=== PATIENT | female | born 1970 | race Hispanic/Latino ===

== ENCOUNTER 2018-10-19 12:59 | Outpatient (CLI) | payer OTHER | END 2018-10-19 13:00 | disposition home or self-care (01) | LOC: DTY/OP 12:59 | PROVIDERS: ATTEND Surgery | DX: E66.01 Morbid (severe) obesity due to excess calories (principal) | CPT/HCPCS: 97802 ==

== ENCOUNTER 2018-10-25 11:00 | Inpatient (IN) | payer BC, OTHER ==
[2018-11-07] MEDS ORDERED: Heparin 5,000 UNITS/ML VIAL ONE (07:39)
--- NOTE | 2018-11-07 07:39 | HP ---
CHIEF COMPLAINT: Lap band intolerance, obesity. HISTORY: A 48-year-old female, underwent laparoscopic adjustable gastric banding in [facility] in 2006. She had a slip and lost from 230 to 110 pounds. She had a revision of the lap band by Dr. Baumann in [place]. She is having trouble eating. She is here for removal of band and conversion to sleeve. PAST MEDICAL HISTORY: Hypertension. PAST SURGICAL HISTORY: Breast reduction, lap band revision x2. MEDICATIONS: Lotrel. ALLERGIES: NO KNOWN DRUG ALLERGIES. FAMILY HISTORY: Heart disease. SOCIAL HISTORY: She is . Former smoker. Occasional alcohol. PHYSICAL EXAMINATION: VITAL SIGNS: Height 64, weight 160, and body mass index 30. GENERAL: Well-developed, well-nourished female, in no apparent distress. HEENT: Unremarkable. LUNGS: Clear. HEART: Regular rate and rhythm. ABDOMEN: Soft, nondistended, and nontender. Multiple well-healed surgical scars. EXTREMITIES: Good pulses. No pedal edema. ASSESSMENT: Lap band intolerance. PLAN: Laparoscopic removal of band, port, and conversion to sleeve. Job ID: [id number]
[2018-11-07] MEDS ORDERED: Midazolam HCl 2 mg/2 ml Vial ONE (08:37)
[2018-11-07] MEDS ORDERED: Bupivacaine/Epinephrine 0.25% 30 ML VIAL ONE ×2 (08:44→09:04)
[2018-11-07] MEDS ORDERED: Fentanyl 250 MCG/5 ML VIAL ONE (08:44)
[2018-11-07] MEDS ORDERED: CEFAZOLIN 1 GM VIAL ONE (09:12)
[2018-11-07] MEDS ORDERED: Promethazine HCl 25 MG/ML VIAL SLOW IVP PRN (10:08)
[2018-11-07] MEDS ORDERED: Promethazine HCl 25 MG/ML VIAL IM PRN ×3 (10:08→11:02)
[2018-11-07] MEDS ORDERED: Ondansetron HCl/PF 4 MG/2 ML Vial IVP PRN (10:08)
[2018-11-07] MEDS ORDERED: hydrALAZINE 20 MG/ML VIAL SLOW IVP PRN (10:53)
[2018-11-07] MEDS ORDERED: Dextrose 50% Abboject 50 ML SYRINGE SLOW IVP PRN (10:53)
[2018-11-07] MEDS ORDERED: Hydrocodone-Acetamin 15 ML UDCUP PO PRN (10:53)
[2018-11-07] MEDS ORDERED: Dextrose 5% in Water 1,000 ML IV PRN (10:53)
[2018-11-07] MEDS ORDERED: Ondansetron PF 4 MG/2 ML Vial IVP PRN ×2 (10:53→11:02)
[2018-11-07] MEDS ORDERED: diphenhydrAMINE 50 MG/ML VIAL IVP PRN ×2 (10:53→11:02)
[2018-11-07] MEDS ORDERED: diphenhydrAMINE 50 MG/ML VIAL IM PRN (11:02)
[2018-11-07] MEDS ORDERED: Zolpidem Tartrate 5 MG TAB PO PRN (11:02)
[2018-11-07] MEDS ORDERED: diphenhydrAMINE 25 MG CAP PO PRN (11:02)
[2018-11-07] MEDS ORDERED: Naloxone HCl 0.4 mg/ml Vial IV PRN (11:02)
[2018-11-07] MEDS ORDERED: HYDROmorphone 10 mg/100 ml CADD IVPB PRN (11:02)
[2018-11-07] MEDS ORDERED: Communication Order-Pharmacy FS SCH (11:15)
[2018-11-07] MEDS ORDERED: HYDROmorphone 2 MG/ML VIAL ONE (11:24)
[2018-11-07] MEDS ORDERED: Glycopyrrolate 0.2 MG/ML 5 ML SYRINGE ONE (11:59)
[2018-11-07] MEDS ORDERED: PROPOFOL 200 MG/20 ML VIAL ONE (11:59)
[2018-11-07] MEDS ORDERED: Rocuronium Bromide 10 MG/ML (10ML VIAL) ONE (11:59)
[2018-11-07] MEDS ORDERED: Ondansetron PF 4 MG/2 ML Vial ONE (11:59)
[2018-11-07] MEDS ORDERED: Dexamethasone 20 MG/5 ML VIAL ONE (11:59)
[2018-11-07] MEDS ORDERED: Sodium Chloride 0.9% (PF) 10 ML VIAL FS PRN (12:25)
--- NOTE | 2018-11-07 12:28 | OP ---
DATE OF PROCEDURE: 11/07/2018 PREOPERATIVE DIAGNOSES: Lap band intolerance, recurrent hiatal hernia, obesity. PROCEDURES PERFORMED: Laparoscopic removal of lap band and port, hiatal hernia repair, sleeve gastrectomy, and esophagogastroscopy. INDICATIONS: A 48-year-old female, who has had a lap band placed, then had to have it revised twice with inability to tolerate any restriction without severe reflux. FINDINGS: There was a recurrent hiatal hernia. A 38-Upper Sorbian bougie was used. She had dense adhesions in the area. DESCRIPTION OF PROCEDURE: After informed consent was obtained, the patient was taken to the operating room and given general endotracheal anesthesia and placed in the supine position. Abdomen was prepped and draped in the usual fashion. Local anesthesia was infiltrated subcutaneously and deep. A 12-mm incision was performed approximately 8 inches above the xiphoid slightly to the left. Veress needle was inserted. Drop test was performed. Pneumoperitoneum was created to a volume of 2 L of carbon dioxide. Utilizing a bladeless 12 mm trocar and 0-degree laparoscope, direct visual entry into the abdominal cavity was performed. Pneumoperitoneum was then created to a pressure of 15 mmHg and the patient was placed in steep reverse Trendelenburg position. Malathi liver retractor was inserted. Left lobe of liver retracted superiorly. A 12 mm port was placed on the right and two 12s were placed left subcostal, one of which was where the lap band port was. The lap band tubing was divided sharply. The tubing traced down to the buckle. The buckle was dissected out, unlocked. The capsule was incised circumferentially and the lap band removed. Then, further lysis of adhesions was performed to allow the left lobe of the liver to be from the scar. This then allowed further retraction with the Malathi retractor. The right crura was dissected. Then, the omentum was divided to enter the lesser sac and further divided with the LigaSure. Short gastrics divided with LigaSure and the left crura defined with the LigaSure. I was able to get a complete reduction of the hiatal hernia. However, there was extreme density of adhesions posterior on the esophagus. I was very uncomfortable taken these down due to the proximity to the esophagus and decided to do an anterior plication. A 38-Upper Sorbian bougie was inserted, directed into the antrum and the hiatal hernia was closed with 0 Ethibond in the Sew-Right and Ti-Knot device anteriorly. Then, the sleeve was performed. Using a 60 mm green load stapler, the antrum was divided to the bougie, a golds were used along the bougie due to thickness of the stomach and then 2 blues at the end. Hemostasis was assured. Intraoperative endoscopy was then performed. The video endoscope was inserted under direct vision and advanced into the sleeve. The staple line was inspected. There was no bleeding. Staple line was then tested by inflating the new stomach with pressurized air under water. There was no air leak. Stomach was decompressed. Scope was removed. At this point, the lap band port was dissected out and removed. Then, the remnant of the stomach was removed through the same port site. The fascia was closed with 0 Vicryl suture and the GraNee needle. The ports sites were all irrigated. Irrigation fluid removed. Trocars and retractors were removed. The skin was closed with interrupted 4-0 Rapide. Dermabond was applied. The patient tolerated the procedure well, transferred to Recovery in good condition. Sponge and needle count verified correct x2. Job ID: [id number]
[2018-11-07 13:03] VITALS: BMI 27.8
[2018-11-07] MEDS: Ketorolac Tromethamine 30 MG/ML VIAL IVP SCH ×2 (13:24→18:26)
[2018-11-07] MEDS: D5 1/2 NS w/20 mEq KCL 1,000 ML IV SCH ×2 (13:26→22:01)
[2018-11-07] MEDS: CEFAZOLIN 2 GM in Premix Bag 1 BAG IVPB SCH (17:11)
[2018-11-08] MEDS: Ketorolac Tromethamine 30 MG/ML VIAL IVP SCH ×3 (00:28→11:55)
[2018-11-08] MEDS: CEFAZOLIN 2 GM in Premix Bag 1 BAG IVPB SCH (00:28)
[2018-11-08] MEDS: D5 1/2 NS w/20 mEq KCL 1,000 ML IV SCH ×2 (04:15→09:59)
[2018-11-08 04:53] LABS: #Lymphocytes 1.1 thou/uL (1.20-3.40); #Neutrophils 13.2 thou/uL (1.40-6.50); %Basophils 0.2 % (0.0-1.0); %Monocytes 6.4 % (0.0-10.0); %Neutrophils 86.4 % (42.0-75.0); Hemoglobin 12.2 g/dL (12.0-16.0); Mean Corpuscular HGB CONC 32.9 g/dL (32.0-36.0); Mean Corpuscular Hemoglobin 29.2 pg (27.0-31.0); Mean Corpuscular Volume 88.8 fL (78.0-98.0); Mean Platelet Volume 8.3 fL (7.4-10.4); Platelet Count 273 thou/uL (130-400); RBC Distribution Width 14.8 % (11.5-14.5); Red Blood Cell (RBC) Count 4.18 mill/uL (4.20-5.40); White Blood Cell (WBC) Count 15.3 thou/uL (4.8-10.8)
[2018-11-08 05:11] LABS: Anion Gap 9 mmol/L (10-20); BUN (Urea Nitrogen) 5 mg/dL (7.0-18.7); Calc. Creatinine Clearance 135 mL/min (70-130); Calcium 8.8 mg/dL (7.8-10.44); Carbon Dioxide 25 mmol/L (22-29); Chloride 104 mmol/L (98-107); Estimated GFR-MDRD Greater than 90; Glucose 114 mg/dL (70-105); Potassium 3.9 mmol/L (3.5-5.1); Sodium 134 mmol/L (136-145)
[2018-11-08] MEDS ORDERED: Enoxaparin Sodium 40 MG/0.4 ML SYRINGE SC SCH (09:00)
[2018-11-08] MEDS ORDERED: Pantoprazole 40 MG VIAL IVP SCH (09:00)
--- NOTE | 2018-11-08 10:13 | RAD ---
GASTROGRAFIN UPPER GI SERIES: HISTORY: Patient with gastric sleeve. RADIATION DOSIMETRY: 1.6 minutes of fluoroscopy and DAP of 18.9 sainz per centimeter squared. TECHNIQUE: Gastrografin was given orally. Spot and overhead images obtained. FINDINGS: The esophagus is patulous with poor peristalsis. The gastroesophageal junction is in normal position . There are numerous tertiary contractions and suboptimal stripping of the distal esophagus. The proximal gastric lumen fills with contrast. Even after one hour, contrast does not pass into the gastric antrum and distal lumen, suggesting edema at the surgical site in the mid stomach. No evidence of extravasation of contrast seen. IMPRESSION: Contrast is not visualized passing the gastric sleeve region. Transcribed Date/Time: 11/08/2018 11:29 AM
[2018-11-08 15:50] VITALS: BP 118/86; TEMP 98.7
--- NOTE | 2018-11-09 10:49 | DIS ---
DATE OF ADMISSION: 11/07/2018 DATE OF DISCHARGE: 11/08/2018 DISCHARGE DIAGNOSES: Hiatal hernia, lap band intolerance, obesity. PROCEDURES DURING ADMISSION: Laparoscopic removal of lap band and port, hiatal hernia repair, sleeve gastrectomy. HOSPITAL COURSE: The patient was admitted, taken to the operating room, where she underwent removal of band, repair of the hiatal hernia, and sleeve gastrectomy. Postoperatively, she had some additional swelling after Gastrografin swallow that resolved. She is now tolerating liquids well. Pain is controlled on p.o. meds. She is discharged home on hydrocodone and Zofran. She will follow up with me in 2 weeks. Job ID: [id number]
== END 2018-11-08 17:15 | disposition home or self-care (01) | DRG 908 ==
LOC: SURG A 11-07 06:43
PROVIDERS: ADMIT Surgery; ATTEND Surgery
PROC: 0DP64CZ Removal of Extraluminal Device from Stomach, Percutaneous Endoscopic Approach (ICD-10-PCS; principal; 2018-11-07)
PROC: 0BQT4ZZ Repair Diaphragm, Percutaneous Endoscopic Approach (ICD-10-PCS; 2018-11-07)
PROC: 0DB64Z3 Excision of Stomach, Percutaneous Endoscopic Approach, Vertical (ICD-10-PCS; 2018-11-07)
PROC: 0DJ68ZZ Inspection of Stomach, Via Natural or Artificial Opening Endoscopic (ICD-10-PCS; 2018-11-07)
DX: T85.858A Stenosis due to other internal prosthetic devices, implants and grafts, initial encounter (principal); K95.09 Other complications of gastric band procedure; E66.01 Morbid (severe) obesity due to excess calories; Y83.8 Other surgical procedures as the cause of abnormal reaction of the patient, or of later complication, without mention of misadventure at the time of the procedure; Y92.009 Unspecified place in unspecified non-institutional (private) residence as the place of occurrence of the external cause; Z68.27 Body mass index [BMI] 27.0-27.9, adult; I10 Essential (primary) hypertension; Z87.891 Personal history of nicotine dependence; K44.9 Diaphragmatic hernia without obstruction or gangrene
CPT/HCPCS: 36415; 74241; 80048; 85025; 88307; 88312; 94760; C9113; J0690; J1100; J1170; J1644; J1650; J1885; J2250; J2405; J2704; J3010

== ENCOUNTER 2018-11-02 10:02 | Outpatient (CLI) | payer BC ==
--- NOTE | 2018-11-02 10:39 | RAD ---
2 views of the chest: 11/02/2018 COMPARISON: None HISTORY: Preoperative patient FINDINGS: The lungs appear clear. Heart and mediastinal contours are grossly unremarkable. There is a lap band present. IMPRESSION: No acute findings.
[2018-11-02 10:52] LABS: #Eosinphils 0.1 thou/uL (0.0-0.7); #Monocytes 0.7 thou/uL (0.11-0.59); #Neutrophils 4.1 thou/uL (1.40-6.50); %Basophils 0.3 % (0.0-1.0); %Eosinophils 1.9 % (0.0-10.0); %Lymphocytes 28.4 % (21.0-51.0); %Monocytes 9.4 % (0.0-10.0); Hemoglobin 13.8 g/dL (12.0-16.0); Mean Corpuscular HGB CONC 33.3 g/dL (32.0-36.0); Mean Corpuscular Volume 86.9 fL (78.0-98.0); Mean Platelet Volume 7.6 fL (7.4-10.4); Platelet Count 316 thou/uL (130-400); RBC Distribution Width 14.7 % (11.5-14.5); Red Blood Cell (RBC) Count 4.77 mill/uL (4.20-5.40); White Blood Cell (WBC) Count 6.9 thou/uL (4.8-10.8)
[2018-11-02 10:58] LABS: BHCG - Serum Negative (NEGATIVE); Pregs Control Background? CLEAR/WHITE (CLR/WHITE); Pregs Control Bar Appear? YES (CONTROL BAR)
[2018-11-02 11:06] LABS: Hemoglobin A1c 5.2 % (4.0-6.0)
[2018-11-02 11:16] LABS: ALT (SGPT) 20 U/L (8-55); AST (SGOT) 25 U/L (5-34); Albumin 4.2 g/dL (3.5-5.0); Alkaline Phosphatase 82 U/L (40-150); Anion Gap 15 mmol/L (10-20); BUN (Urea Nitrogen) 7 mg/dL (7.0-18.7); Bilirubin, Direct 0.3 mg/dL (0.1-0.3); Bilirubin, Total 0.7 mg/dL (0.2-1.2); Calc. Creatinine Clearance 0 mL/min (70-130); Calcium 9.3 mg/dL (7.8-10.44); Carbon Dioxide 24 mmol/L (22-29); Chloride 102 mmol/L (98-107); Estimated GFR-MDRD Greater than 90; Globulin 3.1 g/dL (2.4-3.5); Glucose 97 mg/dL (70-105); Potassium 3.9 mmol/L (3.5-5.1); Protein, Total 7.3 g/dL (6.0-8.3); Sodium 137 mmol/L (136-145)
--- NOTE | 2018-11-04 21:15 | EKG ---
Test Reason : Blood Pressure : / mmHG Vent. Rate : 076 BPM Atrial Rate : 076 BPM P-R Int : 202 ms QRS Dur : 074 ms QT Int : 372 ms P-R-T Axes : 052 005 037 degrees QTc Int : 418 ms Normal sinus rhythm with sinus arrhythmia Anterior infarct , age undetermined Abnormal ECG No previous ECGs available Confirmed by Miguel HAMMOND ([id number]) on 11/04/2018 9:15:16 PM Referred By: LAVELL Confirmed By:Miguel HAMMOND
== END 2018-11-02 10:03 | disposition home or self-care (01) ==
LOC: LABBT 10:02
PROVIDERS: ATTEND Surgery
DX: Z01.818 Encounter for other preprocedural examination (principal); E66.01 Morbid (severe) obesity due to excess calories; T85.858A Stenosis due to other internal prosthetic devices, implants and grafts, initial encounter
CPT/HCPCS: 71046; 80053; 80076; 83036; 84703; 85025; 93005; 93010

== ENCOUNTER 2018-11-10 15:24 | Observation (INO) | payer BC ==
[~2018-11-10 15:24] MED LIST: Iopamidol 300 61% 100 ML VIAL FS ONE
[2018-11-10] MEDS ORDERED: Thiamine HCl 200 MG/2 ML VIAL ONE (16:09)
[2018-11-10] MEDS ORDERED: Multivit, Adult Inj 10 ML VIAL ONE (16:09)
[2018-11-10 16:24] LABS: #Basophils 0.1 thou/uL (0.0-0.2); #Eosinphils 0.2 thou/uL (0.0-0.7); #Lymphocytes 1.8 thou/uL (1.20-3.40); #Monocytes 0.9 thou/uL (0.11-0.59); #Neutrophils 7.5 thou/uL (1.40-6.50); %Basophils 0.9 % (0.0-1.0); %Eosinophils 1.5 % (0.0-10.0); %Lymphocytes 16.9 % (21.0-51.0); %Monocytes 8.2 % (0.0-10.0); %Neutrophils 72.5 % (42.0-75.0); Hemoglobin 14.5 g/dL (12.0-16.0); Mean Corpuscular HGB CONC 32.7 g/dL (32.0-36.0); Mean Corpuscular Hemoglobin 28.6 pg (27.0-31.0); Mean Corpuscular Volume 87.5 fL (78.0-98.0); Mean Platelet Volume 9.2 fL (7.4-10.4); Platelet Count 316 thou/uL (130-400); RBC Distribution Width 15.2 % (11.5-14.5); Red Blood Cell (RBC) Count 5.09 mill/uL (4.20-5.40); White Blood Cell (WBC) Count 10.4 thou/uL (4.8-10.8)
[2018-11-10 16:39] LABS: ALT (SGPT) 24 U/L (8-55); AST (SGOT) 17 U/L (5-34); Alkaline Phosphatase 68 U/L (40-150); Anion Gap 20 mmol/L (10-20); BUN (Urea Nitrogen) 24 mg/dL (7.0-18.7); Bilirubin, Total 0.9 mg/dL (0.2-1.2); Calc. Creatinine Clearance 0 mL/min (70-130); Calcium 9.3 mg/dL (7.8-10.44); Carbon Dioxide 15 mmol/L (22-29); Chloride 109 mmol/L (98-107); Estimated GFR-MDRD 89; Globulin 3.9 g/dL (2.4-3.5); Glucose 72 mg/dL (70-105); Lipase 13 U/L (8-78); Magnesium 1.8 mg/dL (1.6-2.6); Potassium 3.6 mmol/L (3.5-5.1); Protein, Total 7.9 g/dL (6.0-8.3); Sodium 140 mmol/L (136-145)
--- NOTE | 2018-11-10 17:10 | RAD ---
Radiograph abdomen one view: DATE: 11/10/2018 Time: 4:35 PM HISTORY: 48-year-old female with vomiting. Status post bariatric surgery. The purpose of the KUB is for planni ng purposes for CT of abdomen ordered by ER. Patient just had a single column upper GI study on 11/08/2018. FINDINGS: The oral contrast material given 2 days ago is now entirely in the right colon, from cecum to proxima l transverse colon. There is no residual oral contrast material in the esophagus, vertical sleeve lumen, or small intestine. Bowel gas pattern is normal. IMPRESSION: 1. The previously administered oral contrast material 2 days ago, has now progressed to the colon. 2. For the current CT, 15 mL dilute Gastrografin will be administered.
--- NOTE | 2018-11-10 17:51 | CT ---
CT ABDOMEN WITH CONTRAST CT PELVIS WITH CONTRAST: DATE: 11/10/2018 HISTORY: 48-year-old female with vomiting. COMPARISON: No prior chest CTs. TECHNIQUE: IV injection of iodinated contrast media: administered. Oral contrast media:, 15 mL solution of very diluted Gastrografin. FINDINGS: Narrowed gastric channel with suture line. The distal esophagus and gastric pouch is dilated with air -fluid level. On the repeat scan, there is very dilute oral contrast material, 2 dilute to distinguish from water. There is much denser nondilated Gastrografin in the right colon from upper GI series 2 days ago. Ther e is no oral contrast material in nondilated small bowel loops. Abutting the medial aspect of the upper spleen and posterior edge of the tail of the pancreas, very c lose to the medial aspect of the left hemidiaphragm, there is a thin-walled 2.5 x 3.5 x 3.5 cm fluid collection without surrounding fat stranding. There is a tiny left pleural effusion. No consolidation at lung bases. No pneumoperitoneum. There is an ill-defined soft tissue density lesion with subcutaneous emphysema in the fat superficial to the anterolateral aspect of the mid abdominal wall. This is presumably site of port of recent laparoscopi c surgery. No pathology identified involving kidneys, liver, abdominal aorta, adrenals, pancreas, or spleen. No colonic diverticulitis. Small amount of free fluid in the cul-de-sac. Normal urinary bladder. Appendix is fluid-filled and is 7 mm in caliber, but there is no surrounding fat stranding. Unlikely to represent acute appendicitis unless the patient has right lower quadrant or periumbilical pain. IMPRESSION: 1) status post vertical sleeve gastrectomy. 2) persistent partial obstruction at proximal-midportion of the gastric sleeve. The oral contrast mat erial given 2 days ago has reached the right hemicolon.
[2018-11-10] MEDS ORDERED: Morphine 4 MG/ML VIAL ONE ×2 (18:24→18:51)
[2018-11-10 18:38] LABS: Bilirubin Negative (Negative); Blood, Urine Negative (Negative); Clarity Slightly Cloudy (Clear); Glucose, Urine (Dipstick) Negative (Negative); Leukocyte Negative (Negative); Nitrite Negative (Negative); Protein, Urine (Dipstick) Negative (Neg-Trace); Specific Gravity, Urine 1.015 (1.005-1.030); Urobilinogen 0.2 mg/dL (0.2-1.0); pH, Urine 5.5 (5.0-9.0)
[2018-11-10] MEDS ORDERED: Dextrose 5%-Lactated Ringers 1,000 ML IV SCH (20:00)
[2018-11-10] MEDS ORDERED: diphenhydrAMINE 50 MG/ML VIAL IVP PRN (21:04)
[2018-11-10] MEDS ORDERED: Acetaminophen 1,000 MG in Premix Bag 1 BAG IVPB PRN (21:04)
[2018-11-10] MEDS ORDERED: Dextrose 5% in Water 1,000 ML IV PRN (21:04)
[2018-11-10] MEDS ORDERED: Hydrocodone-Acetamin 15 ML UDCUP PO PRN (21:04)
[2018-11-10] MEDS ORDERED: Ondansetron PF 4 MG/2 ML Vial IVP PRN (21:04)
[2018-11-10] MEDS ORDERED: Dextrose 50% Abboject 50 ML SYRINGE SLOW IVP PRN (21:04)
[2018-11-10] MEDS ORDERED: Ketorolac Tromethamine 30 MG/ML VIAL IVP PRN (21:04)
[2018-11-10] MEDS ORDERED: hydrALAZINE 20 MG/ML VIAL SLOW IVP PRN (21:04)
[2018-11-10] MEDS ORDERED: Promethazine HCl 25 MG/ML VIAL IM PRN (21:04)
[2018-11-10] MEDS: Dextrose 5%-Lactated Ringers 1,000 ML IV SCH (21:56)
[2018-11-11 02:32] VITALS: BMI 26.4
[2018-11-11 05:24] LABS: #Eosinphils 0.3 thou/uL (0.0-0.7); #Lymphocytes 1.8 thou/uL (1.20-3.40); #Monocytes 0.8 thou/uL (0.11-0.59); #Neutrophils 4.8 thou/uL (1.40-6.50); %Basophils 0.3 % (0.0-1.0); %Eosinophils 4.4 % (0.0-10.0); %Lymphocytes 22.9 % (21.0-51.0); %Monocytes 10.6 % (0.0-10.0); %Neutrophils 61.8 % (42.0-75.0); Hemoglobin 12.2 g/dL (12.0-16.0); Mean Corpuscular HGB CONC 32.6 g/dL (32.0-36.0); Mean Corpuscular Hemoglobin 29.2 pg (27.0-31.0); Mean Corpuscular Volume 89.6 fL (78.0-98.0); Mean Platelet Volume 8.6 fL (7.4-10.4); Platelet Count 276 thou/uL (130-400); RBC Distribution Width 14.9 % (11.5-14.5); Red Blood Cell (RBC) Count 4.16 mill/uL (4.20-5.40); White Blood Cell (WBC) Count 7.8 thou/uL (4.8-10.8)
[2018-11-11 05:44] LABS: Anion Gap 11 mmol/L (10-20); BUN (Urea Nitrogen) 15 mg/dL (7.0-18.7); Calc. Creatinine Clearance 128 mL/min (70-130); Calcium 8.6 mg/dL (7.8-10.44); Carbon Dioxide 21 mmol/L (22-29); Chloride 112 mmol/L (98-107); Estimated GFR-MDRD Greater than 90; Glucose 90 mg/dL (70-105); Potassium 4.3 mmol/L (3.5-5.1); Sodium 140 mmol/L (136-145)
[2018-11-11] MEDS: Dextrose 5%-Lactated Ringers 1,000 ML IV SCH (07:17)
[2018-11-11 07:57] VITALS: BP 121/77
[2018-11-11] MEDS ORDERED: Pantoprazole 40 MG VIAL IVP SCH (09:00)
[2018-11-11 11:42] VITALS: TEMP 97.5
--- NOTE | 2018-11-11 15:08 | RAD ---
XR UGI Single Contrast No Air HISTORY: Postop gastric bypass COMPARISON: 11/08/2018 study. FINDINGS: The patient was given 15 mL of Gastrografin which she ingested without difficulty. The dist al esophagus is again noted to be patulous with poor motility. After a several minute delay contrast is seen to pass into the stomach into the antrum region and some minimal contrast seen withi n the duodenal C-loop. No extravasation. IMPRESSION: Delayed passage of contrast but definite improvement as compared to the previous exam.
[2018-11-11] MEDS ORDERED: Enoxaparin Sodium 40 MG/0.4 ML SYRINGE SC SCH (21:00)
--- NOTE | 2018-11-14 12:37 | SS ---
DATE OF ADMISSION: 11/10/2018 DATE OF DISCHARGE: 11/11/2018 ADMISSION DIAGNOSIS: Postoperative nausea and inability to take any oral intake following sleeve gastrectomy. DISCHARGE DIAGNOSIS: Postoperative nausea and inability to take any oral intake following sleeve gastrectomy, resolving. ADMISSION HISTORY: The patient is a 48-year-old female. She had undergone a laparoscopic band removal and sleeve gastrectomy per Dr. Brown on 11/07/2018. It was noted that the patient's upper GI study on the day after her surgery showed no passage of contrast. She was discharged home at that time as it was felt that she could perhaps maintain some degree of hydration. On postoperative day #3, she called complaining of severe nausea and vomiting, inability to keep down any fluids and was referred to the [facility] Emergency Room. She received a couple of liters of IV fluid and felt better. Due to her tachycardia and her symptoms, a CT scan was ordered by the emergency room physician. This showed no contrast within the stomach as she was unable to tolerate even a small amount of contrast when the CT scan was obtained. It was concerning that she would deteriorate at home again and I therefore recommended observation overnight with hydration. She was put in the hospital for observation on 11/10/2018. Other than her inability to swallow any liquids, her exam was entirely benign. She had minimal discomfort. Her CBC was normal at admission and her basic metabolic panel aside from some mild acidosis was unremarkable. By the next day, her acidosis had dramatically improved. She felt that she was doing better and able to sip liquids slowly. An upper GI study was therefore ordered. Although there was slow passage of contrast from the upper stomach to the lower stomach, there was a visualized outflow from the upper gastric area. As she was able to tolerate liquids and was not vomiting later in that day, I felt she would be safe for discharge home. She denied any pain and required no pain medication. I spoke with her extensively regarding methods to optimize her hydration. She was discharged home on 11/11 and instructed to follow up with Dr. Brown as previously scheduled. Job ID: [id number]
== END 2018-11-11 15:40 | disposition home or self-care (01) ==
LOC: SCSER 15:24 → INTOOBSV 18:05 → SURG A 18:05 → SCSER 19:14
PROVIDERS: ADMIT Specialist; ATTEND Specialist
DX: K95.89 Other complications of other bariatric procedure (principal); K91.0 Vomiting following gastrointestinal surgery; F41.9 Anxiety disorder, unspecified; Z79.899 Other long term (current) drug therapy
CPT/HCPCS: 36415; 74018; 74177; 74241; 80048; 80053; 81003; 83605; 83690; 83735; 85025; 94760; 96361; 96365; 96366; 96375; C9113; G0378; J2270; J3411; Q9967

== ENCOUNTER 2019-01-16 15:27 | Inpatient (IN) | payer BC ==
[2019-01-16 15:57] LABS: #Basophils 0.1 thou/uL (0.0-0.2); #Lymphocytes 3.5 thou/uL (1.20-3.40); #Monocytes 0.8 thou/uL (0.11-0.59); #Neutrophils 3.4 thou/uL (1.40-6.50); %Eosinophils 0.5 % (0.0-10.0); %Monocytes 10.7 % (0.0-10.0); %Neutrophils 43.8 % (42.0-75.0); Mean Corpuscular HGB CONC 33.5 g/dL (32.0-36.0); Mean Corpuscular Hemoglobin 29.5 pg (27.0-31.0); Mean Platelet Volume 8.4 fL (7.4-10.4); Platelet Count 255 thou/uL (130-400); RBC Distribution Width 12.7 % (11.5-14.5); Red Blood Cell (RBC) Count 4.73 mill/uL (4.20-5.40); White Blood Cell (WBC) Count 7.8 thou/uL (4.8-10.8)
[2019-01-16] MEDS ORDERED: Morphine 4 MG/ML VIAL ONE (16:01)
[2019-01-16] MEDS ORDERED: Ondansetron PF 4 MG/2 ML Vial ONE (16:01)
[2019-01-16 16:16] LABS: BHCG - Serum Negative (NEGATIVE); Pregs Control Background? CLEAR/WHITE (CLR/WHITE); Pregs Control Bar Appear? YES (CONTROL BAR)
[2019-01-16 16:19] LABS: ALT (SGPT) 18 U/L (8-55); AST (SGOT) 44 U/L (5-34); Albumin 3.8 g/dL (3.5-5.0); Alkaline Phosphatase 107 U/L (40-150); Anion Gap 15 mmol/L (10-20); BUN (Urea Nitrogen) 14 mg/dL (7.0-18.7); Bilirubin, Total 1.3 mg/dL (0.2-1.2); Calc. Creatinine Clearance 0 mL/min (70-130); Calcium 9.1 mg/dL (7.8-10.44); Carbon Dioxide 22 mmol/L (22-29); Chloride 99 mmol/L (98-107); Estimated GFR-MDRD Greater than 90; Globulin 3.1 g/dL (2.4-3.5); Glucose 178 mg/dL (70-105); Lipase 43 U/L (8-78); Protein, Total 6.9 g/dL (6.0-8.3); Sodium 133 mmol/L (136-145)
[2019-01-16 16:50] LABS: Bilirubin Negative (Negative); Blood, Urine Negative (Negative); Clarity Clear (Clear); Glucose, Urine (Dipstick) Normal (Negative); Leukocyte Negative Leu/uL (Negative); Nitrite Negative (Negative); Protein, Urine (Dipstick) 20 mg/dL (Neg-Trace); Urobilinogen 6 mg/dL (Less than 2)
--- NOTE | 2019-01-16 16:51 | ULT ---
Gallbladder ultrasound: Multiple grayscale images of right upper quadrant obtained according to protocol. INDICATION: Pain FINDINGS: Liver: Normal Gallbladder: There is mild gallbladder wall prominence, 4 mm No shadowing cholelithiasis. Waterman's Sign: Negative Common bile duct is mildly dilated, 7 mm. Ascites: None IMPRESSION: Moderate distention of the gallbladder with mild gallbladder wall thickening. Correlate clinically. Mild biliary ductal dilatation. Correlate with biliary laboratory values.
[2019-01-16] MEDS ORDERED: Dextrose 5 % And 0.9 % NaCl 1,000 ML IV SCH (19:15)
[2019-01-16] MEDS ORDERED: Mag-Al 1200 mg/1200 mg/30 ML UDCUP PO PRN (19:24)
[2019-01-16] MEDS ORDERED: Dextrose 50% Abboject 50 ML SYRINGE SLOW IVP PRN (19:24)
[2019-01-16] MEDS ORDERED: hydrALAZINE 20 MG/ML VIAL SLOW IVP PRN (19:24)
[2019-01-16] MEDS ORDERED: Morphine 2 MG/ML SYRINGE SLOW IVP PRN (19:24)
[2019-01-16] MEDS ORDERED: Promethazine HCl 25 MG/ML VIAL IM PRN (19:24)
[2019-01-16] MEDS ORDERED: Calcium Carbonate 500 MG ChewTAB PO PRN (19:24)
[2019-01-16] MEDS ORDERED: Morphine 4 MG/ML VIAL SLOW IVP PRN (19:24)
[2019-01-16] MEDS ORDERED: Dextrose 5% in Water 1,000 ML IV PRN (19:24)
[2019-01-16] MEDS ORDERED: Ondansetron PF 4 MG/2 ML Vial IVP PRN (19:24)
[2019-01-16] MEDS ORDERED: Sodium Chloride 0.9% 10 ML ONE (20:05)
[2019-01-16] MEDS: D5 1/2 NS w/20 mEq KCL 1,000 ML IV SCH (20:14)
[2019-01-16] MEDS: Acetaminophen 1,000 MG in Premix Bag 1 BAG IVPB PRN (20:21)
[2019-01-16] MEDS: Famotidine/PF 20 mg/2ml Vial SLOW IVP SCH (20:22)
[2019-01-16] MEDS: Famotidine 20 MG TAB PO SCH (21:04)
[2019-01-16] MEDS: Lisinopril 10 MG TAB PO SCH (21:39)
[2019-01-16] MEDS: Amlodipine 5 MG TAB PO SCH (21:39)
[2019-01-17] MEDS ORDERED: Sodium Chloride 0.9% 10 ML ONE ×2 (00:40→09:05)
[2019-01-17] MEDS: D5 1/2 NS w/20 mEq KCL 1,000 ML IV SCH ×3 (04:18→20:48)
[2019-01-17 04:54] LABS: #Eosinphils 0.1 thou/uL (0.0-0.7); #Lymphocytes 1.5 thou/uL (1.20-3.40); #Monocytes 0.7 thou/uL (0.11-0.59); %Basophils 0.3 % (0.0-1.0); %Eosinophils 1.4 % (0.0-10.0); %Lymphocytes 20.3 % (21.0-51.0); %Monocytes 9.5 % (0.0-10.0); %Neutrophils 68.6 % (42.0-75.0); Mean Corpuscular HGB CONC 32.5 g/dL (32.0-36.0); Mean Corpuscular Hemoglobin 28.9 pg (27.0-31.0); Mean Corpuscular Volume 88.9 fL (78.0-98.0); Mean Platelet Volume 8.9 fL (7.4-10.4); Platelet Count 214 thou/uL (130-400); RBC Distribution Width 12.8 % (11.5-14.5); Red Blood Cell (RBC) Count 4.51 mill/uL (4.20-5.40); White Blood Cell (WBC) Count 7.2 thou/uL (4.8-10.8)
[2019-01-17 05:13] LABS: ALT (SGPT) 63 U/L (8-55); AST (SGOT) 149 U/L (5-34); Albumin 3.2 g/dL (3.5-5.0); Alkaline Phosphatase 130 U/L (40-150); Anion Gap 9 mmol/L (10-20); BUN (Urea Nitrogen) 5 mg/dL (7.0-18.7); Bilirubin, Total 2.6 mg/dL (0.2-1.2); Calc. Creatinine Clearance 132 mL/min (70-130); Calcium 8.3 mg/dL (7.8-10.44); Carbon Dioxide 24 mmol/L (22-29); Chloride 104 mmol/L (98-107); Estimated GFR-MDRD Greater than 90; Globulin 2.6 g/dL (2.4-3.5); Glucose 108 mg/dL (70-105); Lipase 22 U/L (8-78); Potassium 3.3 mmol/L (3.5-5.1); Protein, Total 5.8 g/dL (6.0-8.3); Sodium 134 mmol/L (136-145)
--- NOTE | 2019-01-17 08:17 | HP ---
CHIEF COMPLAINT: Epigastric pain. HISTORY OF PRESENT ILLNESS: This is a 48-year-old female status post sleeve gastrectomy in October, who developed acute onset of nausea, vomiting, and midepigastric pain last night. The pain radiates to her back. She has been reporting that her urine has become very abnormally dark despite drinking plenty of fluid. PAST MEDICAL HISTORY: Hypertension. PAST SURGICAL HISTORY: She has had two lap bands and a sleeve gastrectomy as well as a breast reduction. MEDICATIONS: She has gone on Lotrel 10/10. ALLERGIES: NO KNOWN DRUG ALLERGIES. FAMILY HISTORY: Family history of heart disease and hypertension. SOCIAL HISTORY: She is . She works at [employer] in [employer]. No tobacco. Daily alcohol. PHYSICAL EXAMINATION: VITAL SIGNS: Temperature 98.3, pulse 77, and blood pressure 91/64. GENERAL: She is awake, alert, does not appear to be in any distress at this time. HEENT: She has some light jaundice of the eyes. LUNGS: Clear. HEART: Regular rate and rhythm. ABDOMEN: Soft. No significant tenderness at this time. EXTREMITIES: Unremarkable. LABORATORY DATA: Her white count is 7.2, H and H of 13 and 40, and platelet count 211. Her sodium 134, potassium 3.3, and glucose 108. Her T-bili is 2.6 up from 1.3, AST 149, ALT is 63, and alkaline phosphatase 130. HCG negative. Lipase is 22. Ultrasound showed distended gallbladder with some mild wall thickening and mild common bile duct dilatation at 7 mm. ASSESSMENT: Suspicious for choledocholithiasis. PLAN: Gastroenterology consultation. Job ID: [id number]
[2019-01-17] MEDS: Famotidine 20 MG TAB PO SCH ×2 (08:55→20:47)
[2019-01-17] MEDS ORDERED: Prevnar 13-Val Conj/PF 0.5 ML SYRINGE IM ONE (09:00)
[2019-01-17] MEDS: Famotidine/PF 20 mg/2ml Vial SLOW IVP SCH ×2 (12:39→21:31)
[2019-01-17] MEDS: Acetaminophen 1,000 MG in Premix Bag 1 BAG IVPB PRN (12:40)
--- NOTE | 2019-01-17 12:59 | NM ---
Exam: Nuclear medicine HIDA scan with ejection fraction HISTORY: Right upper quadrant pain. Comparison: None TECHNIQUE: Patient was administered 4.5 millicuries of technetium 99m mebrofenin intravenously. Patie nt was pretreated with 1.6 mcg of CCK intravenously 30 minutes prior to injection of radiopharmaceutical. Patient was given a second 1.3 mcg of CCK over 30 minutes, 60 minutes after inje ction of radiopharmaceutical FINDINGS: Appropriate uptake of the radiotracer by the hepatic parenchyma. Localization of radiotrace r into the intrahepatic biliary system. Passage of radiotracer from the common bile into the small bowel loops. Radiotracer localization in the gallbladder is noted within 1 hour. Gallbladder ejection fraction: 46%. IMPRESSION: 1. No scintigraphic evidence of acute cholecystitis 2. 46% ejection fraction Transcribed Date/Time: 01/17/2019 1:01 PM
--- NOTE | 2019-01-17 15:18 | CON ---
DATE OF CONSULTATION: 01/17/2019 REQUESTING PHYSICIAN: Dr. Colt Brown. REASON FOR CONSULTATION: Abdominal pain and elevated LFTs. HISTORY OF PRESENT ILLNESS: Majo Marsh is a very pleasant 48-year-old woman, who was admitted to the hospital last night with acute symptoms. She has a history of 2 prior lap band procedures and then in October, she underwent conversion to a sleeve gastrectomy, this went well. She has been taking Lotrel on an outpatient basis. She does report that she will have about 4 alcoholic beverages most nights. Over the past weekend, she had 3 transient episodes of significant acute pain in the epigastrium. Then yesterday around lunchtime, she had another episode which was also quite sudden and quite severe, this lasted for several hours. The pain escalated to a 10/10 in severity. She was salivating nauseated, had a few episodes of nonbloody emesis. The pain started shooting through to her back. She felt that she had some dark urine as well. She presented for evaluation. Initial labs showed some mild LFT elevation with total bilirubin 1.3, AST was 44, and ALT only 18. An abdominal ultrasound was performed, which showed some mild gallbladder wall thickening and distention, but no shadowing stones, no pericholecystic fluid. The common bile duct was prominent size at 7 mm. Lipase was normal. The patient's symptoms quickly declined throughout the entire day today she has felt fine. She has been n.p.o., but she is not having any nausea or any further abdominal pain. LFTs did bump up from yesterday with total bilirubin now 2.6, AST up to 149, ALT 63. She was sent for a HIDA scan earlier today and this came back essentially normal with no imaging evidence of acute cholecystitis. REVIEW OF SYSTEMS: Full review of systems including constitutional, head, eyes, ears, nose, throat, GI, , cardiovascular, respiratory, musculoskeletal, neurologic systems is negative except as noted in the HPI. PAST MEDICAL HISTORY: Lap band x2, sleeve gastrectomy in October 2018, breast reduction, and hypertension. ALLERGIES: NO KNOWN DRUG ALLERGIES. OUTPATIENT MEDICATIONS: Lotrel. SOCIAL HISTORY: She does drink alcohol. She will have 4 alcoholic beverages most evenings. She does not smoke. FAMILY HISTORY: Positive for heart disease. PHYSICAL EXAMINATION: VITAL SIGNS: Temperature 98.7, pulse 72, blood pressure 118/75, and 98% oxygen saturation on room air. GENERAL: A 48-year-old woman sitting up in bed comfortably, in no distress. SKIN: No jaundice. No rashes were palpable. EYES: No scleral icterus. Extraocular movements intact. ENT: Mucous membranes moist. No oral lesions. LYMPH: No submandibular or supraclavicular lymphadenopathy. THYROID: Nontender to palpation. HEART: Regular rate and rhythm. LUNGS: Clear to auscultation bilaterally. ABDOMEN: Bowel sounds are present. Soft and nontender to palpation throughout. No masses or organomegaly appreciated. EXTREMITIES: No peripheral edema. VESSELS: Radial pulses 2+ bilaterally. NEUROLOGIC: Cranial nerves 2 through 12 intact bilaterally. No focal deficits. LABORATORY STUDIES: WBC 7.2, hemoglobin 13, platelets 214. BUN 5, creatinine 0.57. Total bilirubin initially 1.3, now up to 2.6. Alkaline phosphatase is 130. AST initially 44, now up to 149. ALT initially 18, now up to 63. Lipase only 22. test negative. IMAGING STUDIES: Abdominal ultrasound showed mild gallbladder wall thickening and distention with no shadowing stones. Common bile duct is mildly prominent at 7 mm. HIDA scan was normal. ASSESSMENT AND PLAN: 1. Acute nausea and vomiting, improved. 2. Acute abdominal pain, epigastric, resolved. 3. Acute LFT elevation. 4. Mild biliary dilation. The patient's overall presentation does seem most consistent with intermittent biliary colic. There were no stones seen on abdominal ultrasound, but bile duct is mildly prominent, and it is certainly possible that she has passed some sludge or small gallstones. The daily alcohol abuse does confound interpretation of the LFTs a little bit. In addition, she has been completely asymptomatic essentially since hospital admission over the course of today. If this was secondary to choledocholithiasis, it is likely that the stone or sludge has passed. I would observe for now, allow her to eat dinner tonight, see if symptoms recur. Recheck LFTs tomorrow. If the LFTs continue to trend up, or if the patient has recurrence of her pain, then we could proceed with ERCP tomorrow. If the LFTs decline and she continues to do well, then we will probably be able to avoid ERCP. Thank you for the consultation. Please call anytime with questions or concerns. Job ID: [id number]
[2019-01-17] MEDS: Lisinopril 10 MG TAB PO SCH (21:31)
[2019-01-17] MEDS: Amlodipine 5 MG TAB PO SCH (21:32)
[2019-01-17] MEDS ORDERED: Acetaminophen 325 MG TAB PO PRN (23:06)
[2019-01-17] MEDS ORDERED: Zolpidem Tartrate 5 MG TAB PO SCH (23:15)
[2019-01-18 05:59] LABS: ALT (SGPT) 54 U/L (8-55); AST (SGOT) 51 U/L (5-34); Albumin 3.1 g/dL (3.5-5.0); Alkaline Phosphatase 130 U/L (40-150); Bilirubin, Direct 0.5 mg/dL (0.1-0.3); Bilirubin, Total 0.8 mg/dL (0.2-1.2); Protein, Total 5.9 g/dL (6.0-8.3)
[2019-01-18] MEDS: D5 1/2 NS w/20 mEq KCL 1,000 ML IV SCH ×3 (07:22→23:10)
[2019-01-18] MEDS ORDERED: cefOXitin 2 GM in Sodium Chloride 0.9% 100 ML IVPB SCH (07:30)
--- NOTE | 2019-01-18 08:30 | PRG ---
DATE OF SERVICE: 01/18/2019 SUBJECTIVE: The patient is feeling much better this morning. Pain just about gone. No nausea or vomiting. OBJECTIVE: VITAL SIGNS: Temperature 98.3, pulse 72, and blood pressure 108/61. GENERAL: She looks good. ABDOMEN: Soft, nondistended, and nontender. LABORATORY DATA: Her LFTs have calmed back down to normal with the exception of her AST slightly elevated at 51. ASSESSMENT: Likely passed a biliary stone. PLAN: Recommend laparoscopic cholecystectomy with cholangiogram. CONSENT: I have discussed the planned procedure as well as risk of bleeding, infection, injury to bile duct, injury to bowel, need to open, she understands and gives informed consent. Job ID: [id number]
[2019-01-18] MEDS: Famotidine/PF 20 mg/2ml Vial SLOW IVP SCH ×3 (08:42→23:02)
[2019-01-18] MEDS: Famotidine 20 MG TAB PO SCH (08:42)
[2019-01-18] MEDS ORDERED: Rocuronium Bromide 10 MG/ML (10ML VIAL) ONE (16:35)
[2019-01-18] MEDS ORDERED: Dexamethasone 20 MG/5 ML VIAL ONE (16:35)
[2019-01-18] MEDS ORDERED: Lidocaine 1% PF 5 ML VIAL ONE (16:35)
[2019-01-18] MEDS ORDERED: PROPOFOL 200 MG/20 ML VIAL ONE (16:35)
[2019-01-18] MEDS ORDERED: PHENYLEPHRINE-NS 100 MCG/ML 10 ML SYRINGE ONE (16:35)
[2019-01-18] MEDS ORDERED: Iothalamate Meglumine 60% 50 ML VIAL FS ONE (19:11)
[2019-01-18] MEDS ORDERED: Bupivacaine/Epinephrine 0.25% 30 ML VIAL ONE (19:11)
[2019-01-18] MEDS ORDERED: Fentanyl 100 MCG/2 ML VIAL ONE ×3 (19:16→21:16)
[2019-01-18] MEDS ORDERED: SUGAMMADEX SODIUM 200 MG/2 ML VIAL ONE (20:20)
--- NOTE | 2019-01-18 20:21 | RAD ---
Intraoperative cholangiogram one view: DATE: 01/18/2019 HISTORY: 48-year-old female with right upper quadrant abdominal pain FINDINGS: Common duct caliber near the upper limits of normal. Contrast in nondilated biliary tree. No filling defect. No obstruction. Contrast in the duodenum. IMPRESSION: No evidence of choledocholithiasis or biliary obstruction.
[2019-01-18] MEDS ORDERED: Promethazine HCl 25 MG/ML VIAL IM PRN ×2 (20:23→21:41)
[2019-01-18] MEDS ORDERED: HYDROcodone/Acetaminophen 10/325 mg Tablet PO PRN ×2 (20:23)
[2019-01-18] MEDS ORDERED: Calcium Carbonate 500 MG ChewTAB PO PRN (20:23)
[2019-01-18] MEDS ORDERED: Dextrose 5% in Water 1,000 ML IV PRN (20:23)
[2019-01-18] MEDS ORDERED: Dextrose 50% Abboject 50 ML SYRINGE SLOW IVP PRN (20:23)
[2019-01-18] MEDS ORDERED: Morphine 2 MG/ML SYRINGE SLOW IVP PRN (20:23)
[2019-01-18] MEDS ORDERED: hydrALAZINE 20 MG/ML VIAL SLOW IVP PRN (20:23)
[2019-01-18] MEDS ORDERED: Ondansetron PF 4 MG/2 ML Vial IVP PRN (20:23)
[2019-01-18] MEDS ORDERED: Mag-Al 1200 mg/1200 mg/30 ML UDCUP PO PRN (20:23)
[2019-01-18] MEDS ORDERED: Famotidine 20 MG TAB PO SCH (21:00)
[2019-01-18] MEDS ORDERED: Promethazine HCl 25 MG/ML VIAL SLOW IVP PRN (21:41)
[2019-01-18] MEDS ORDERED: Ondansetron HCl/PF 4 MG/2 ML Vial IVP PRN (21:41)
[2019-01-18] MEDS: Morphine 4 MG/ML VIAL SLOW IVP PRN (22:35)
[2019-01-18] MEDS: Ketorolac Tromethamine 30 MG/ML VIAL IVP SCH (23:01)
[2019-01-18] MEDS: Lisinopril 10 MG TAB PO SCH (23:02)
[2019-01-18] MEDS: Amlodipine 5 MG TAB PO SCH (23:02)
[2019-01-19] MEDS: Morphine 4 MG/ML VIAL SLOW IVP PRN (00:56)
[2019-01-19 04:09] VITALS: TEMP 97.7
[2019-01-19] MEDS: Ketorolac Tromethamine 30 MG/ML VIAL IVP SCH (05:24)
[2019-01-19] MEDS: D5 1/2 NS w/20 mEq KCL 1,000 ML IV SCH (05:32)
[2019-01-19 05:50] LABS: #Lymphocytes 0.6 thou/uL (1.20-3.40); #Monocytes 0.3 thou/uL (0.11-0.59); #Neutrophils 7.6 thou/uL (1.40-6.50); %Basophils 0.2 % (0.0-1.0); %Eosinophils 0.1 % (0.0-10.0); %Lymphocytes 6.7 % (21.0-51.0); %Monocytes 3.7 % (0.0-10.0); %Neutrophils 89.4 % (42.0-75.0); Mean Corpuscular HGB CONC 31.9 g/dL (32.0-36.0); Mean Corpuscular Hemoglobin 28.5 pg (27.0-31.0); Mean Corpuscular Volume 89.4 fL (78.0-98.0); Mean Platelet Volume 8.4 fL (7.4-10.4); Platelet Count 233 thou/uL (130-400); RBC Distribution Width 12.6 % (11.5-14.5); Red Blood Cell (RBC) Count 4.92 mill/uL (4.20-5.40); White Blood Cell (WBC) Count 8.5 thou/uL (4.8-10.8)
[2019-01-19 06:13] LABS: ALT (SGPT) 49 U/L (8-55); AST (SGOT) 42 U/L (5-34); Albumin 3.5 g/dL (3.5-5.0); Alkaline Phosphatase 135 U/L (40-150); Anion Gap 9 mmol/L (10-20); BUN (Urea Nitrogen) Less than 4 mg/dL (7.0-18.7); Bilirubin, Total 0.6 mg/dL (0.2-1.2); Calc. Creatinine Clearance 116 mL/min (70-130); Calcium 8.8 mg/dL (7.8-10.44); Carbon Dioxide 26 mmol/L (22-29); Chloride 102 mmol/L (98-107); Estimated GFR-MDRD Greater than 90; Glucose 173 mg/dL (70-105); Lipase 7 U/L (8-78); Potassium 3.8 mmol/L (3.5-5.1); Protein, Total 6.5 g/dL (6.0-8.3); Sodium 133 mmol/L (136-145)
[2019-01-19 07:40] VITALS: BP 132/83
[2019-01-19] MEDS: Famotidine/PF 20 mg/2ml Vial SLOW IVP SCH ×2 (08:37)
[2019-01-19] MEDS ORDERED: Enoxaparin Sodium 40 MG/0.4 ML SYRINGE SC SCH ×2 (09:00)
--- NOTE | 2019-01-19 11:18 | OP ---
DATE OF PROCEDURE: 01/18/2019 PREOPERATIVE DIAGNOSIS: Biliary pancreatitis. PROCEDURE PERFORMED: Laparoscopic cholecystectomy with cholangiogram. INDICATIONS: A 48-year-old female, presented with severe right upper quadrant pain, elevated liver function tests, who had enlarged common bile duct on ultrasound. Bilirubin went up to 2.7, then she got better. FINDINGS: Small caliber cystic duct, thickened gallbladder wall. Negative cholangiogram. DESCRIPTION OF PROCEDURE: After informed consent was obtained, the patient was taken the operating room and given general endotracheal anesthesia, placed in supine position. Abdomen was prepped and draped in usual fashion. Local anesthesia infiltrated subcutaneously and deep and a subumbilical incision was performed. Subcu divided sharply. The fascia grasped and 2 stay sutures of 0 Vicryl placed in each side of midline. Midline incised. Digital palpation revealed no local adhesions. A blunt 12 mm trocar inserted. Pneumoperitoneum was created to a pressure of 15 mmHg. A 0 degree laparoscope inserted under direct vision. Three 5 mm ports were placed subcostally. The gallbladder grasped and advanced superiorly. There were multiple adhesions. These were taken down using blunt and sharp dissection. The peritoneum was opened distally to allow dissection of the cystic duct artery in critical view. A clip was placed at the base of the gallbladder. An incision made in the cystic duct. Arrow cholangiocatheter inserted. Intraoperative cholangiogram performed showing free flow into the duodenum, no filling defects. Normal intrahepatic ducts. The catheter removed. The duct triply ligated and divided. The artery triply ligated and divided. The gallbladder removed from its fossa utilizing electrocautery, removed from the abdomen through the umbilical port. Hemostasis assured. Trocars and retractors removed. The fascia closed with interrupted 0 Vicryl suture. The skin closed with interrupted 4-0 Rapide. Dermabond applied. The patient tolerated the procedure well, transferred to Recovery in good condition. Sponge and needle count verified correct x2. Job ID: [id number]
--- NOTE | 2019-01-19 11:40 | DIS ---
DATE OF ADMISSION: 01/16/2019 DATE OF DISCHARGE: 01/19/2019 DISCHARGE DIAGNOSES: Probable choledocholithiasis and acute cholecystitis. PROCEDURES DURING ADMISSION: Right upper quadrant ultrasound, HIDA scan, and laparoscopic cholecystectomy with cholangiogram. HOSPITAL COURSE: The patient was admitted with severe right upper quadrant pain. LFTs were elevated and continued to elevate. GI was consulted. They considered ERCP. A HIDA scan was performed. This was fine. Then, her LFTs came back towards normal. She was taken to the operating room, where she underwent a lap alysa with cholangiogram. She was found to have thickened gallbladder wall. The cholangiogram was fine. She is now doing well, tolerating liquids. She is discharged home in good condition on hydrocodone and Zofran. She will follow up with me in 2 weeks. Job ID: [id number]
--- NOTE | 2019-01-19 13:43 | PQF ---
DATE: 01-19-19 ATTN: DR. PORTILLO MONTE Please exercise your independent, professional judgment in responding to the clarification form. Clinical indicators are provided on the bottom of this form for your review Please check appropriate box(s): [x ] Hyponatremia please specify etiology, if known vomiting ___ [ ] Insignificant Lab Values [ ] Other diagnosis [ ] Unable to determine In addition, please specify: Present on Admission (POA): [ x ] Yes [ ] No [ ] Unable to determine CLINICAL INDICATORS - SIGNS / SYMPTOMS / LABS: SODIUM 01-16-19: 133 01-17-19: 134 01-18-19: 133 RISK FACTORS: H&P 01-16-19: S/P SLEEVE GASTRECTOMY IN OCTOBER, WHO DEVELOPED ACUTE ONSET OF NAUSEA, AND MIDEPIGASTRIC PAIN CONSULT NOTE CASE 01-18-19: ACUTE NAUSEA AND VOMITING, IMPROVED, ACUTE LFT ELEVATION, MILD BILIARY DILATION TREATMENTS: ER NOTE 01-16-19: NS IVF, ZOFRAN IV SERIES OF LABS 01-16-19 TO 01-19-19 (This form is maintained as a part of the permanent medical record) 2014 [employer] All Rights Reserved [email or web address] [email or web address] Office: [phone] [facility] HOSPITALAroldo
--- NOTE | 2019-01-25 18:51 | PQF ---
STONE CARTER JOHN A JR MD [id number] [place] [id number] CLINICAL DOCUMENTATION CLARIFICATION FORM: POST DISCHARGE Addendum to original discharge summary date: ____ Late entry note date: __ DATE: 01-25-2019 ATTN:Colt Charles Please exercise your independent, professional judgment in responding to the clarification form. Clinical indicators are provided on the bottom of this form for your review Can you please specify whether Biliary Pancreatitis is ruled in or ruled out during this encounter? Biliary Pancreatitis [ ] Ruled in diagnosis [ ] Continue to treat [ ] Resolved Type: [ ] Acute [ ] Chronic [ ] Ruled out diagnosis [ ] Cannot rule out diagnosis [ ] Other diagnosis please specify: [ ] Unable to determine In addition, please specify: Present on Admission (POA): [ ] Yes [ ] No [ ] Unable to determine For continuity of documentation, please document condition throughout progress notes and discharge summary. Thank You. CLINICAL INDICATORS: -OP Note 01/18 - "Biliary pancreatitis" -Abdomen ultrasound 01/16 - "mild biliary ductal dilation" -H&P 01/17 - "CC: epigastric pain" -H&P 01/17 - "developed acute onset of nausea, vomiting and midepigastric pain" -Consult 01/17 - "elevated LFTs" RISK FACTOR: -H&P 01/17 - 48 years old female -DS 01/19 - Choledocholithiasis -DS 01/19 - Acute cholecystitis TREATMENTS: -Abdomen ultrasound - Collected 01/16 -Gastroenterology consult - H&P 01/17 -HIDA scan - Collected 01/17 -Lap cholecystectomy - OP Note 01/18 (This form is maintained as a part of the permanent medical record) 2014 [employer] All Rights Reserved Madeleine [employer] [not provided] MTDD
== END 2019-01-19 09:25 | disposition home or self-care (01) | DRG 418 ==
LOC: ERS 15:27 → OBSVTOIN 18:46 → 3SE 18:46 → SURG A 01-18 18:21
PROVIDERS: ADMIT Surgery; ATTEND Surgery
PROC: 0FT44ZZ Resection of Gallbladder, Percutaneous Endoscopic Approach (ICD-10-PCS; principal; 2019-01-18)
PROC: BF10YZZ Fluoroscopy of Bile Ducts using Other Contrast (ICD-10-PCS; 2019-01-18)
DX: K80.42 Calculus of bile duct with acute cholecystitis without obstruction (principal); E87.1 Hypo-osmolality and hyponatremia; I10 Essential (primary) hypertension; F10.10 Alcohol abuse, uncomplicated; Z98.84 Bariatric surgery status
CPT/HCPCS: 36415; 47532; 76705; 78227; 80053; 80076; 81003; 83690; 84703; 85025; 88304; 96361; 96374; 96375; A9537; J0131; J0690; J1100; J1610; J1650; J1885; J2001; J2270; J2405; J2704; J3010; J3411; S0028